=== PATIENT | female | born 1955 | race Caucasian/White ===

== ENCOUNTER 2021-07-21 09:14 | Emergency (ER) | payer MEDICARE, OTHER ==
[2021-07-21 09:54] LABS: HEMOGLOBIN 13.5 gm/dl (12.3-15.3); RED BLOOD COUNT 4.82 M/UL (4.00-5.10)
[2021-07-21] MEDS ORDERED: KLOR-CON M2020 MEQ PO (11:17)
== END 2021-07-21 11:20 | disposition home or self-care (01) ==
LOC: ER1 09:14
PROVIDERS: Nurse Practitioner
DX: U07.1 COVID-19 (principal); R56.9 Unspecified convulsions; I10 Essential (primary) hypertension; Z79.899 Other long term (current) drug therapy
CPT/HCPCS: 0240U; 70450; 71045; 80053; 80307; 81001; 82550; 82553; 84484; 85025; 93005; 99284

== ENCOUNTER 2021-12-09 13:53 | Emergency (ER) | payer MEDICARE ==
[~2021-12-09 13:53] MED LIST: KLOR-CON M2020 MEQ PO
[2021-12-09] MEDS ORDERED: PERCOCET 5/325 T1 EA PO (18:10)
[2021-12-09] MEDS ORDERED: PREDNISONE 20 M20 MG PO (18:16)
[2021-12-09] MEDS ORDERED: CYCLOBENZAPRINE5 MG PO (18:16)
== END 2021-12-09 18:40 | disposition home or self-care (01) ==
LOC: ER1 13:53
DX: M47.22 Other spondylosis with radiculopathy, cervical region (principal); E03.9 Hypothyroidism, unspecified; I10 Essential (primary) hypertension; Z85.828 Personal history of other malignant neoplasm of skin; Z90.710 Acquired absence of both cervix and uterus
CPT/HCPCS: 72125; 82550; 82553; 84484; 93005; 96374; 96375; 99284; J1100; J1885